=== PATIENT | female | born 1980 | race Two or more races ===

== ENCOUNTER 2019-05-29 09:11 | Emergency (ER) | payer OTHER ==
[~2019-05-29] VITALS: Ht 152.4 cm; Wt 86.2 kg
[2019-05-29 09:15] VITALS: BP 129/94
[2019-05-29] MEDS ORDERED: EMTRICITABINE/TENOFOVIR 1 TAB PO ONE (09:30)
[2019-05-29] MEDS ORDERED: RALTEGRAVIR POTASSIUM 400 MG TABLET PO ONE (09:30)
[2019-05-29] MEDS ORDERED: LAMIVUDINE/ZIDOVUDINE 150-300 1 TAB TABLET PO ONE (09:30)
--- NOTE | 2019-05-29 09:43 | NUR ---
LABRATORY WITH PATIENT FOR BLOOD DRAW
[2019-05-29] MEDS ORDERED: TENOFOVIR DISOPROXIL FUMARATE 300 MG TABLET PO ONE (10:00)
[2019-05-29] MEDS ORDERED: EMTRICITABINE 200 MG CAPSULE PO ONE (10:00)
--- NOTE | 2019-05-29 10:31 | NUR ---
PT. VERBALIZED UNDERSTANDING OF AFTERCARE INSTRUCTIONS.Patient discharged to home in stable condition. Written and verbal after care instructions given. Patient verbalizes understanding of instruction. Pt instructed to follow up with employee health
== END 2019-05-29 10:32 | disposition home or self-care (01) ==
LOC: ER 09:14
DX: S69.81XA Other specified injuries of right wrist, hand and finger(s), initial encounter (principal); W46.0XXA Contact with hypodermic needle, initial encounter; Y93.89 Activity, other specified; Y92.89 Other specified places as the place of occurrence of the external cause; Y99.8 Other external cause status
CPT/HCPCS: 36415; 86706; 86803; 87806

== ENCOUNTER 2019-10-16 16:05 | Emergency (ER) | payer BC, OTHER ==
[~2019-10-16] VITALS: Ht 152.4 cm; Wt 86.2 kg
[2019-10-16 16:15] VITALS: BP 124/75
== END 2019-10-16 18:02 | disposition home or self-care (01) ==
LOC: ER 16:09
DX: L03.114 Cellulitis of left upper limb (principal); E03.9 Hypothyroidism, unspecified; Z98.890 Other specified postprocedural states
CPT/HCPCS: 93971-TC

== ENCOUNTER 2019-11-23 11:01 | Outpatient (CLI) | payer BC, OTHER | END 2019-11-23 23:59 | disposition home or self-care (01) | LOC: RAD 11:01 | PROVIDERS: ATTEND Legal Medicine | DX: M25.532 Pain in left wrist (principal) | CPT/HCPCS: 73110 ==

== ENCOUNTER 2020-05-15 14:54 | Outpatient (CLI) | payer BC ==
[2020-05-15 16:34] LABS: BASOPHILS % (AUTO) 0.1 % (0.0-2.0); EOSINOPHILS % (AUTO) 1.9 % (0.0-6.0); HEMATOCRIT 42 % (33-45); HEMOGLOBIN 13.6 g/dL (11.5-14.8); LYMPHOCYTES # (AUTO) 1.9 /CMM (0.8-4.8); LYMPHOCYTES % (AUTO) 26.3 % (20.0-44.0); MEAN CORPUSCULAR HGB CONC 33 g/dl (31.0-36.0); MEAN CORPUSCULAR VOLUME 85 fL (82-100); MONOCYTES # (AUTO) 0.3 /CMM (0.1-1.30); MONOCYTES % (AUTO) 4.4 % (2.0-12.0); NEUTROPHILS # (AUTO) 4.8 /CMM (1.8-8.9); NEUTROPHILS % (AUTO) 67.3 % (43.0-81.0); PLATELET COUNT (AUTO) 252 /CMM (150-450); RED BLOOD CELL COUNT(AUTO) 4.88 MIL/uL (4.0-5.2); WHITE BLOOD COUNT (AUTO) 7.2 K/uL (4.3-11.0)
[2020-05-15 16:43] LABS: BILIRUBIN,URINE NEGATIVE (NEGATIVE); COLOR,URINE YELLOW (YELLOW); LEUKOCYTE ESTERASE ,URINE NEGATIVE (NEGATIVE); NITRITE, URINE NEGATIVE (NEGATIVE); PROTEIN,URINE NEGATIVE (NEGATIVE); UGLUCOSE NEGATIVE (NEGATIVE); UROBILINOGEN,URINE 0.2 EU/dL (0.2)
[2020-05-15 16:48] LABS: BILIRUBIN,TOTAL 0.1 mg/dL (0.2-1.0); CALCIUM, SERUM 8.3 mg/dL (8.5-10.1); CREATININE 0.6 mg/dL (0.6-1.3); POTASSIUM 3.8 mmol/L (3.5-5.1)
[2020-05-15 16:57] LABS: FREE T4 (FREE THYROXINE) 1.03 ng/dL (0.76-1.46); THYROID STIMULATING HORMONE 3.046 uIU/mL (0.358-3.74)
[2020-05-16 08:07] LABS: LUTEINIZING HORMONE 2.5 mIU/mL (.); PROLACTIN 9.3 ng/mL (4.8-23.3)
== END 2020-05-15 23:59 | disposition home or self-care (01) ==
LOC: LAB 14:54
PROVIDERS: ATTEND Legal Medicine
DX: E03.9 Hypothyroidism, unspecified (principal)
CPT/HCPCS: 36415; 80053-TC; 80061-TC; 82306; 82626; 82670; 83001; 83002; 84146; 84402; 84403; 84439-TC; 84443-TC; 85025-TC; 85610-TC; 85730-TC; 86003

== ENCOUNTER 2020-05-24 09:00 | Outpatient (CLI) | payer BC | END 2020-05-24 23:59 | disposition home or self-care (01) | LOC: LAB 09:00 | PROVIDERS: ATTEND Specialist | DX: Z01.812 Encounter for preprocedural laboratory examination (principal); Z20.822 Contact with and (suspected) exposure to COVID-19 | CPT/HCPCS: C9803; U0003 ==

== ENCOUNTER 2020-05-29 06:22 | Day surgery (SDC) | payer BC ==
[2020-05-29] MEDS ORDERED: LIDOCAINE 1% INJ 50 ML MDV IJ ONE (07:33)
[2020-05-29] MEDS ORDERED: BUPIVACAINE 0.5 % PF 150 MG/30 ML VIAL ONE (07:34)
[2020-05-29] MEDS ORDERED: FENTANYL PF 100MCG/2ML AMPUL ONE (07:44)
[2020-05-29] MEDS ORDERED: MIDAZOLAM HCL 2 MG/2ML VIAL ONE (07:45)
== END 2020-05-29 10:05 | disposition home or self-care (01) ==
LOC: DS 06:22
PROVIDERS: ATTEND Specialist
DX: M65.4 Radial styloid tenosynovitis [de Quervain] (principal); E03.9 Hypothyroidism, unspecified; E66.9 Obesity, unspecified
CPT/HCPCS: 25000; 84703; A6402; J1100; J2250; J2405; J2704; J2765; J3010; J3490